=== PATIENT | male | born 1965 ===

== ENCOUNTER 2019-01-14 08:41 | Outpatient (CLI) | payer BC ==
[2019-01-14 10:50] LABS: Hematocrit 43.1 % (35.5-45.6); Hemoglobin 14.9 gm/dl (11.8-15.2); Mean Corpuscular HGB Conc 35 % (32-34); Mean Corpuscular Volume 85 fl (84-94); Platelet Count 160 K/mm3 (140-440); Red Blood Count 5.08 M/mm3 (3.65-5.03); Red Cell Distribution Width 13.9 % (13.2-15.2)
[2019-01-14 11:13] LABS: Alanine Aminotransferase 35 units/L (7-56); Albumin 4.3 g/dL (3.9-5); BUN/Creatinine Ratio 17; Blood Urea Nitrogen 10 mg/dL (9-20); Calcium 9.3 mg/dL (8.4-10.2); Hemolysis Index 6; LDL Cholesterol,Direct 128 mg/dL (50-130)
[2019-01-14 11:23] LABS: Chol/HDL Ratio 5.28 %; HDL Cholesterol 32 mg/dL (40-59)
[2019-01-17 13:49] LABS: Vitamin D, 25-OH, D2 <4 ng/mL
== END 2019-01-14 08:42 | disposition home or self-care (01) ==
LOC: LAB 08:41
PROVIDERS: ATTEND Internal Medicine
DX: Z13.21 Encounter for screening for nutritional disorder (principal); Z12.5 Encounter for screening for malignant neoplasm of prostate; E11.9 Type 2 diabetes mellitus without complications; E78.5 Hyperlipidemia, unspecified
CPT/HCPCS: 36415; 80053; 80061; 82306; 82607; 83036; 84153; 84443; 85027

== ENCOUNTER 2022-01-19 09:22 | Outpatient (CLI) | payer BC | END 2022-01-19 09:23 | disposition home or self-care (01) | LOC: LABHHL 09:22 | PROVIDERS: ATTEND Internal Medicine | DX: E11.9 Type 2 diabetes mellitus without complications (principal) | CPT/HCPCS: 36415; 83036 ==